=== PATIENT | male | born 1935 | race Hispanic/Latino ===

== ENCOUNTER 2023-05-07 07:00 | Day surgery (SDC) | payer MEDICARE ==
[2023-05-04 10:01] VITALS: BP 160/79; PULSE 52; RESP 17
[2023-05-04 10:08] LABS: BASOPHILS # (AUTO) 0.01 K/uL (0.00-0.20); BASOPHILS % (AUTO) 0.3 % (0.0-5.0); EOSINOPHILS # (AUTO) 0.02 K/uL (0.00-0.70); EOSINOPHILS % (AUTO) 0.7 % (0.0-8.0); HEMATOCRIT 38.9 % (42-54); IMMATURE GRANULOCYTE ABSOLUTE 0.01 K/uL (0-1); LYMPHOCYTES % (AUTO) 34.2 % (21.0-51.0); MEAN CORPUSCULAR HGB CONC 33.9 g/dL (32.0-36.0); MEAN CORPUSCULAR VOLUME 94.4 fL (79-99); MONOCYTES # (AUTO) 0.3 K/uL (0.1-1.0); MONOCYTES % (AUTO) 9.2 % (3.0-13.0); NEUTROPHILS # (AUTO) 1.6 K/uL (1.8-7.7); NEUTROPHILS % (AUTO) 55.3 % (40.0-77.0); PLATELET COUNT (AUTO) 148 K/uL (130-400); RED BLOOD CELL COUNT(AUTO) 4.12 MIL/uL (4.50-6.20); RED CELL DISTRIBUTION WIDTH 13.6 % (11.0-15.5); WHITE BLOOD COUNT (AUTO) 2.9 K/uL (4.8-10.8)
[2023-05-04 10:16] LABS: CREATININE 0.9 mg/dL (0.5-1.5); POTASSIUM 4.6 mmol/L (3.5-5.1)
[2023-05-04 10:21] LABS: INR <= 0.93 (0.85-1.15); PROTHROMBIN TIME 10.7 SEC (9.6-11.6)
[2023-05-04 10:38] LABS: BAND NEUTROPHILS % (MANUAL) 1 % (0-2); BASOPHILS % (MANUAL) 1 % (0-2); LYMPHOCYTES % (MANUAL) 38 % (22-44); MAN.DIFF COMMENT-IMPRESSION MANUAL DIFFERENTIAL; MONOCYTES % (MANUAL) 9 % (2-9); PLATELET MORPHOLOGY COMMENT ADEQUATE; SEGMENTED NEUTROPHILS % 51 % (40-70); TOTAL CELLS COUNTED 100; WBC MORPHOLOGY CONSISTENT W/DIFF
[~2023-05-07] VITALS: Ht 165.1 cm; Wt 60.5 kg
[2023-05-07] VITALS (15 sets, daily range): BP systolic 143–183; BP diastolic 63–84; PULSE 52–93; RESP 12–18
[~2023-05-07 07:00] MED LIST: FAMO20TA8 PO; IBUP-2070 PO; LEVO50TA11 PO; LISI10TA24 PO; METO-391 PO; PRAV40TA3 PO
[2023-05-07] MEDS ORDERED: CEFAZOLIN SODIUM 2 GM VIAL ONE (07:20)
[2023-05-07] MEDS ORDERED: LACTATED RINGERS 1000ML 1,000 ML IV ONE (07:20)
[2023-05-07] MEDS ORDERED: BUPIVACAINE/PF 0.5% 30ML VIAL ONE (07:51)
[2023-05-07] MEDS ORDERED: FAMOTIDINE 20MG VIAL IV ONE (07:52)
[2023-05-07] MEDS ORDERED: HYDROMORPHONE 1 MG INJ ONE (07:52)
[2023-05-07] MEDS ORDERED: PROPOFOL 10 MG/ML 20ML VIAL IV ONE (07:57)
[2023-05-07] MEDS ORDERED: ROCURONIUM BROMIDE 10MG/1ML 5ML VL ONE (08:00)
[2023-05-07] MEDS ORDERED: NEOSTIGMINE METHYLSULFATE 1MG/ML IV ONE (08:00)
[2023-05-07] MEDS ORDERED: GLYCOPYRROLATE 0.2 MG/ML 5 ML VIAL ONE (08:00)
[2023-05-07] MEDS ORDERED: SUGAMMADEX SODIUM 200 MG/2 ML VIAL IV ONE (08:02)
[2023-05-07] MEDS ORDERED: ONDANSETRON 4MG INJ ONE (08:46)
[2023-05-07] MEDS ORDERED: FENTANYL CITRATE PF 50 MCG/1 ML 2ML VIAL ONE (09:42)
== END 2023-05-07 11:20 | disposition home or self-care (01) ==
LOC: DAH 07:00
PROVIDERS: ATTEND Surgery
DX: K40.90 Unilateral inguinal hernia, without obstruction or gangrene, not specified as recurrent (principal); I10 Essential (primary) hypertension; E03.9 Hypothyroidism, unspecified; I25.10 Atherosclerotic heart disease of native coronary artery without angina pectoris; E78.5 Hyperlipidemia, unspecified; J20.9 Acute bronchitis, unspecified; Z79.01 Long term (current) use of anticoagulants; Z79.899 Other long term (current) drug therapy; Z98.890 Other specified postprocedural states; Z86.16 Personal history of COVID-19; Z79.890 Hormone replacement therapy
CPT/HCPCS: 80048; 85025; 85610; 36415; 93005; 49650; A4663; J7030; A4452; A4344; A4215 ×2; J7120; J3490 ×3; J3010; J1170; J2704; J2405; J0665; J0690; C1781; A4223; A4222; A4221; J2710

== ENCOUNTER 2023-05-09 14:44 | Emergency (ER) | payer MEDICARE ==
[~2023-05-09] VITALS: Ht 165.1 cm; Wt 60.8 kg
[~2023-05-09 14:44] MED LIST changes: -IBUP-2070 PO
[2023-05-09 15:29] VITALS: RESP 16
[2023-05-09] MEDS ORDERED: MAG/ALUM/SIMETH 30 ML UDCUP PO ONE (16:00)
[2023-05-09] MEDS ORDERED: LIDOCAINE HCL 2% VISCOUS 15 ML UDCUP PO ONE (16:00)
[2023-05-09] MEDS ORDERED: METOCLOPRAMIDE 10 MG TABLET PO ONE (16:00)
[2023-05-09] MEDS ORDERED: METO-296 PO (17:25)
[2023-05-09] MEDS ORDERED: FAMO-136 PO (17:25)
[2023-05-09 17:28] VITALS: BP 114/56; PULSE 72; O2SAT 96
== END 2023-05-09 17:34 | disposition home or self-care (01) ==
LOC: EDH 14:44
DX: K29.70 Gastritis, unspecified, without bleeding (principal); I10 Essential (primary) hypertension; E03.9 Hypothyroidism, unspecified; Z79.899 Other long term (current) drug therapy; Z98.890 Other specified postprocedural states
CPT/HCPCS: 71045; 93005